=== PATIENT | male | born 1960 | race Caucasian/White ===

== ENCOUNTER 2020-08-10 07:23 | Day surgery (SDC) | payer OTHER ==
[2020-08-10] MEDS ORDERED: Ringers Lactate 1,000 ML IV ONE (08:07)
[2020-08-10] MEDS ORDERED: LIDOCAINE 1% MPF 5 ML VIAL ONE (09:44)
[2020-08-10] MEDS ORDERED: propofoL 200 MG/20 ML VIAL IV ONE ×2 (09:44)
--- NOTE | 2020-08-10 09:52 | ENDO RPT ---
[address], [address] EGD PROCEDURE REPORT EXAM DATE: 08/10/2020 PATIENT NAME: Kwan Norris MR#: [id number] BIRTHDATE: 1960 ATTENDING: Telly Green Dr STATUS: outpatient NEWSPAPER CARRIER: Yennifer Winters RN and Remedios Rebolledo RN INDICATIONS: The patient is a 60 yr old Male here for an EGD due to heartburn and melenic bleeding PROCEDURE PERFORMED: EGD with biopsy MEDICATIONS: Per Anesthesia. TOPICAL ANESTHETIC: none CONSENT: The patient understands the risks and benefits of the procedure and understands that these risks include, but are not limited to: sedation, allergic reaction, infection, perforation and/or bleeding. Alternative means of evaluation and treatment include, among others: physical exam, x-rays, and/or surgical intervention. The patient elects to proceed with this endoscopic procedure. DESCRIPTION OF PROCEDURE: During intra-op preparation period all mechanical medical equipment was checked for proper function. Hand hygiene and appropriate measures for infection prevention was taken. Procedure, possible complications, and alternatives including but not limited to the possibility of bleeding, perforation, tear, infection, sepsis, need for surgery, need for blood transfusion, and anesthesia related complications were explained to the patient. After the risks, benefits and alternatives of the procedure were thoroughly explained, Informed consent was verified, confirmed and timeout was successfully executed by the treatment team. The patient was placed in the left lateral position. The patient was anesthetized with topical anesthesia. Through the anesthetized oropharyngeal area, the scope was passed without any difficulty. The EG-[id number] ([id number]) endoscope was introduced through the mouth and advanced to the third portion of the duodenum. Retroflexed views revealed a small hiatal hernia. The gastroscope was then slowly withdrawn and removed. LA Class A esophagitis was found in the lower esophagus. A small hiatal hernia was found Mild gastritis was found in the antrum. Multiple biopsies were obtained and sent to pathology. ADVERSE EVENTS: There were no complications. IMPRESSIONS: 1. LA Class A esophagitis in the lower esophagus 2. Small hiatal hernia 3. Mild gastritis in the antrum, s/p biopsies RECOMMENDATIONS: 1. await biopsy results 2. acid suppression therapy REPEAT EXAM: Telly Green Dr eSigned: Telly Green Dr 08/10/2020 9:51 AM cc: Viry Godinez M.D. CPT CODES: ICD9 CODES: PATIENT NAME: Kwan Norris MR#: [id number]
[2020-08-10] MEDS ORDERED: BSS OPTHALMIC SOL 15 ML BOT OPTH ONE (10:07)
--- NOTE | 2020-08-10 10:14 | ENDO RPT ---
[address], [address] COLONOSCOPY PROCEDURE REPORT EXAM DATE: 08/10/2020 PATIENT NAME: Kwan Norris MR #: [id number] BIRTHDATE: 1960 ATTENDING: Telly Green Dr STATUS: outpatient [employer] MANAGER: Yennifer Winters RN and Remedios Rebolledo RN INDICATIONS: The patient is a 60 yr old Male here for a colonoscopy due to personal history of colon polyps PROCEDURE PERFORMED: Colonoscopy with biopsy - cold polypectomy MEDICATIONS: Per Anesthesia. ESTIMATED BLOOD LOSS: None CONSENT: The patient understands the risks and benefits of the procedure and understands that these risks include, but are not limited to: sedation, allergic reaction, infection, perforation and/or bleeding. Alternative means of evaluation and treatment include, among others: physical exam, x-rays, and/or surgical intervention. The patient elects to proceed with this endoscopic procedure. DESCRIPTION OF PROCEDURE: During intra-op preparation period all mechanical medical equipment was checked for proper function. Hand hygiene and appropriate measures for infection prevention was taken. Procedure, possible complications, alternatives including, but not limited to possibility of bleeding, perforation, tear, infection, sepsis, need for surgery, need for blood transfusion, were explained to the patient. After the risks, benefits and alternatives of the procedure were thoroughly explained, Informed consent was verified, confirmed and timeout was successfully executed by the treatment team. The patient was placed in the left lateral position. A digital rectal exam was performed and revealed an enlarged prostate. After appropriate level of anesthesia, the scope was passed. The EC-[id number] ([id number]) endoscope was introduced through the anus and advanced to the terminal ileum which was intubated for a short distance. The quality of the prep was good. The instrument was then slowly withdrawn as the colon was fully examined. Scope withdrawal time was 7 minutes. COLON FINDINGS: A smooth white sessile polyp measuring 3 mm in size was found in the sigmoid colon. A polypectomy was performed with cold forceps. Moderate sized internal hemorrhoids were found. Retroflexed views revealed medium hemorrhoids. The scope was then completely withdrawn from the patient and the procedure terminated. ADVERSE EVENTS: There were no complications. IMPRESSIONS: 1. 3 mm white sessile polyp in the sigmoid colon; polypectomy was performed with cold forceps 2. Moderate sized internal hemorrhoids 3. Intubation to terminal ileum 4. Personal history of colon polyps RECOMMENDATIONS: 1. await biopsy results 2. avoid NSAIDS for 2 weeks RECALL: Return in 3 year(s) for Colonoscopy. Telly Green Dr eSigned: Telly Green Dr 08/10/2020 10:13 AM cc: Viry Godinez CPT CODES: ICD9 CODES: 1. 600.0 Hypertrophy (benign) of prostate 2. 211.3 Benign neoplasm of colon PATIENT NAME: Kwan Norris MR#: [id number]
[2020-08-10 10:22] VITALS: TEMP 98; O2SAT 99
[2020-08-10 10:37] VITALS: BP 141/86
== END 2020-08-10 10:32 | disposition home or self-care (01) ==
LOC: OR 07:23
PROVIDERS: ATTEND Internal Medicine Gastroenterology
PROC: 0DBN8ZX Excision of Sigmoid Colon, Via Natural or Artificial Opening Endoscopic, Diagnostic (ICD-10-PCS; principal; 2020-08-10 09:00)
PROC: 0DB68ZX Excision of Stomach, Via Natural or Artificial Opening Endoscopic, Diagnostic (ICD-10-PCS; 2020-08-10 09:00)
DX: K29.50 Unspecified chronic gastritis without bleeding (principal); K92.1 Melena; D12.5 Benign neoplasm of sigmoid colon; K44.9 Diaphragmatic hernia without obstruction or gangrene; K20.90 Esophagitis, unspecified without bleeding; K64.8 Other hemorrhoids; Z86.010 Personal history of colon polyps; Z20.822 Contact with and (suspected) exposure to COVID-19
CPT/HCPCS: 88312; 88305; 45380; 43239; U0003; J2704 ×2; J7120